=== PATIENT | male | born 1955 | race Two or more races ===

== ENCOUNTER 2022-08-21 05:25 | Day surgery (SDC) | payer OTHER ==
[~2022-08-21] VITALS: Ht 165.1 cm; Wt 86.2 kg
== END 2022-08-21 11:10 | disposition home or self-care (01) ==
LOC: CIR.AMB 05:25
PROVIDERS: ATTEND Colon & Rectal Surgery
DX: C20 Malignant neoplasm of rectum (principal); Z20.822 Contact with and (suspected) exposure to COVID-19; Z86.16 Personal history of COVID-19

== ENCOUNTER 2025-01-14 09:45 | Inpatient (IN) | payer OTHER ==
[~2025-01-14] VITALS: Ht 165.1 cm; Wt 86.2 kg
[2025-01-14 16:43] LABS: COL EPI 163 SECONDS (82-175)
[2025-01-20] MEDS ORDERED: CEFTRIAXONE SODIUM 2,000 MG VIAL ONE (10:36)
[2025-01-20] MEDS ORDERED: METRONIDAZOLE/SODIUM CHLORIDE 500 MG/100 ML PIGGYBACK IV ONE ×2 (10:36→12:30)
[2025-01-20] MEDS ORDERED: LIDOCAINE HCL 1%/EPINEPHRINE 20ML VIAL IJ ONE ×2 (11:17→12:30)
[2025-01-20] MEDS ORDERED: BUPIVACAINE HCL/MPF 0.5% 30ML VIAL ONE (11:17)
[2025-01-20] MEDS ORDERED: CEFTRIAXONE SODIUM 2,000 MG VIAL IV ONE (12:30)
[2025-01-20] MEDS ORDERED: BUPIVACAINE HCL 30 ML VIAL IJ ONE (12:30)
[2025-01-20] MEDS ORDERED: ONDANSETRON HCL 2 MG/ML VIAL IV PRN (16:00)
[2025-01-20] MEDS ORDERED: RINGERS SOLUTION,LACTATED 1,000 ML IV SCH (16:00)
[2025-01-20] MEDS ORDERED: MORPHINE SULFATE 4 MG/ML CARTRIDGE IV PRN (16:00)
[2025-01-20] MEDS ORDERED: HYOSCYAMINE SULFATE 0.125 MG TAB.SUBL SL SCH (17:00)
[2025-01-20] MEDS ORDERED: GABAPENTIN 300 MG CAPSULE PO SCH (17:00)
[2025-01-20] MEDS ORDERED: POLYETHYLENE GLYCOL 3350 17 GM BLIST.PACK PO SCH (17:00)
[2025-01-20 17:10] LABS: BASO % 0.2 % (0.1-1.2); EOS # 0.03 (0.04-0.54); EOS % 0.3 % (0.7-7.0); HEMATOCRIT 39.8 % (40.1-51.0); HEMOGLOBIN 13.4 g/dL (13.7-17.5); LYMPH # 0.52 (1.18-3.74); LYMPH % 5.5 % (19.3-53.1); MEAN CORPUSCULAR HEMOGLOBIN 31.9 pg (25.6-32.2); MONO # 0.59 (0.24-0.82); MONO % 6.2 % (4.7-12.5); NEUT # 8.26 (1.56-6.13); NEUT % 86.7 % (34.0-71.1); RED CELL DISTRIBUTION WIDTH 13.4 % (11.6-14.4)
[2025-01-20 17:11] LABS: PLATELET COUNT 116 K/uL (163-369)
[2025-01-20 17:39] LABS: ALBUMIN 3.4 gm/dL (3.4-5.0); CALCIUM 8.6 mg/dL (8.5-10.1); CREATININE SERUM 0.95 mg/dL (0.70-1.30); GFR 78.61; MAGNESIUM 1.7 mg/dL (1.8-2.4); PHOSPHOROUS 2.8 mg/dL (2.5-4.9); POTASSIUM 4.51 mEq/L (3.5-5.1)
[2025-01-20 18:26] VITALS: BP 126/65; O2SAT 95
[2025-01-20] MEDS ORDERED: MAGNESIUM SULFATE IN WATER 50 ML IV NR (18:45)
[2025-01-20] MEDS ORDERED: MAGNESIUM SULFATE IN WATER 2 GM/50 ML PIGGYBAG IV ONE (20:15)
[2025-01-20] MEDS ORDERED: FAMOTIDINE/PF 20 MG/2 ML VIAL IV SCH (21:00)
[2025-01-20 23:40] VITALS: BP 105/60; O2SAT 100
[2025-01-21 08:00] VITALS: BP 122/76; O2SAT 97
[2025-01-21 08:41] LABS: BASO % 0.1 % (0.1-1.2); EOS # 0.06 (0.04-0.54); EOS % 0.7 % (0.7-7.0); HEMATOCRIT 40.6 % (40.1-51.0); HEMOGLOBIN 13.9 g/dL (13.7-17.5); LYMPH % 6.9 % (19.3-53.1); MEAN CORPUSCULAR HEMOGLOBIN 31.7 pg (25.6-32.2); MONO # 0.94 (0.24-0.82); MONO % 10.8 % (4.7-12.5); NEUT # 7.06 (1.56-6.13); RED BLOOD COUNT 4.38 M/uL (4.63-6.08); RED CELL DISTRIBUTION WIDTH 13.3 % (11.6-14.4)
[2025-01-21 08:49] LABS: PLATELET COUNT 121 K/uL (163-369)
[2025-01-21 10:16] LABS: ALBUMIN 3.3 gm/dL (3.4-5.0); CALCIUM 8.7 mg/dL (8.5-10.1); CREATININE SERUM 0.85 mg/dL (0.70-1.30); GFR 89.37; MAGNESIUM 2.5 mg/dL (1.8-2.4); POTASSIUM 4.01 mEq/L (3.5-5.1)
[2025-01-21 10:21] LABS: PHOSPHOROUS 1.8 mg/dL (2.5-4.9)
[2025-01-21] MEDS ORDERED: POTASSIUM PHOS,M-BASIC-D-BASIC 3 MM/ML VIAL IV ONE (12:00)
[2025-01-21 16:21] VITALS: BP 107/70; O2SAT 93
== END 2025-01-21 19:06 | disposition home or self-care (01) | DRG 330 ==
LOC: SURG 01-20 08:31 → O/R 01-20 08:31 → SURG 01-20 09:45 → SURH 01-20 09:45 → SURG 01-20 09:45 → SURH 01-20 13:15 → SURG 01-21 19:06
PROVIDERS: ADMIT Colon & Rectal Surgery; ATTEND Colon & Rectal Surgery
PROC: 0DBB4ZZ Excision of Ileum, Percutaneous Endoscopic Approach (ICD-10-PCS; principal; 2025-01-20 13:15)
DX: Z43.2 Encounter for attention to ileostomy (principal); C20 Malignant neoplasm of rectum